=== PATIENT | female | born 1945 | race Caucasian/White ===

== ENCOUNTER 2021-05-27 23:06 | Inpatient (IN) | payer MEDICARE, MEDICAID ==
[~2021-05-27] VITALS: Ht 162.6 cm; Wt 50.8 kg
[2021-05-27 23:54] LABS: BASOPHILS % 0.3 % (0.0-2.0); EOSINOPHILS % 1.6 % (0.0-5.0); HEMATOCRIT. 40.4 % (36.0-48.0); HEMOGLOBIN. 13.4 g/dL (12.0-16.0); LYMPHOCYTES % 7.9 % (20.0-50.0); MEAN CORPUSCULAR HEMOGLOBIN 30.8 pg (28.0-32.0); MEAN CORPUSCULAR VOLUME 92.4 fL (81.0-99.0); MEAN PLATELET VOLUME 8.5 fl (7.4-10.4); MONOCYTES % 5.5 % (2.0-8.0); NEUTROPHILS % 84.7 % (40.0-76.0); PLATELET 242 x1000/uL (130-400); RED BLOOD CELL COUNT 4.37 mill/uL (4.2-5.4); RED CELL DISTRIBUTION WIDTH 13.3 % (11.6-14.6)
[2021-05-27 23:56] LABS: CHLORIDE 101 mEq/L (98-107)
[2021-05-28] VITALS (22 sets, daily range): BP systolic 96–152; BP diastolic 45–100
[2021-05-28 00:07] LABS: CLARITY URINE CLEAR (CLEAR); COLOR URINE YELLOW (YELLOW); KETONES URINE NEGATIVE (NEGATIVE); LEUKOCYTE ESTERASE URINE 1+ (NEGATIVE); NITRITE URINE POSITIVE (NEGATIVE); OCCULT BLOOD URINE NEGATIVE (NEGATIVE); PROTEIN URINE NEGATIVE (NEGATIVE); SPECIFIC GRAVITY URINE 1.017 (1.005-1.030); UROBILINOGEN URINE 0.2 E.U./dL (0.2-1.0)
[2021-05-28] MEDS ORDERED: PIPERACILLIN/TAZ 3.375G PREMIX 50 ML IV NR (00:30)
[2021-05-28] MEDS ORDERED: SODIUM CHLORIDE 0.9% 1000ML BAG (SEPSIS BOLUS) IV ONE (00:30)
[2021-05-28] MEDS ORDERED: VANCOMYCIN 1G PREMIX 200 ML IV NR (00:30)
[2021-05-28 01:39] LABS: BG BASE EXCESS 2.6 mmol/L (-2.0-2.0); BG CARBOXYHEMOGLOBIN 0.3 % (0.5-1.5); BG DEOXYHEMOGLOBIN 3.3 % (0.0-5.0); BG FRACTION INSPIRED OXYGEN 100; BG HCO3 ACT 27.5 mmol/L (22.0-26.0); BG METHEMOGLOBIN 0.2 % (0.0-1.5); BG OXYGEN SATURATION 96.7 % (92.0-98.5); BG OXYHEMOGLOBIN 96.2 % (94.0-97.0); BG PCO2 43.3 mmHg (35.0-45.0); BG PO2 91.5 mmHg (75.0-100.0); BG SAMPLE SITE RIGHT BRACHIAL; BG TOTAL HEMOGLOBIN 13.5 g/dL (12.0-18.0); BG VENT MODE MASK - NRB
[2021-05-28] MEDS ORDERED: LORAZEPAM 2MG/ML CPJ IV ONE (03:00)
[2021-05-28] MEDS ORDERED: LEVETIRACETAM 500MG PREMIX 100 ML IV ONE (03:00)
[2021-05-28] MEDS ORDERED: SUCCINYLCHOLINE CHLORIDE 200MG/10ML IV ONE ×2 (08:12→08:45)
[2021-05-28] MEDS ORDERED: ETOMIDATE 2MG/ML 10ML VIAL IV ONE ×2 (08:12→08:45)
[2021-05-28] MEDS ORDERED: MIDAZOLAM HCL 100 MG in DEXT 5% WATER 80 ML IV ONE (08:45)
[2021-05-28] MEDS ORDERED: DEXTROSE 50% WATER 50ML SYRINGE IV PRN (09:00)
[2021-05-28] MEDS ORDERED: ACETAMINOPHEN 325MG TABLET PO PRN (09:00)
[2021-05-28] MEDS ORDERED: ONDANSETRON HCL 4MG/2ML INJ IV PRN (09:00)
[2021-05-28] MEDS: BLOOD SUGAR DIAGNOSTIC STRIP TEST SCH ×4 (09:30→19:47)
[2021-05-28] MEDS ORDERED: MIDAZOLAM 100MG/100ML PMX 100 ML IV NR (09:45)
[2021-05-28] MEDS: PANTOPRAZOLE SODIUM 40 MG/VIAL IV SCH (09:50)
[2021-05-28] MEDS: PIPERACILLIN/TAZ 3.375G PREMIX 50 ML IV SCH ×2 (10:00→18:20)
[2021-05-28 10:15] LABS: BG CARBOXYHEMOGLOBIN 0.3 % (0.5-1.5); BG DEOXYHEMOGLOBIN 1.9 % (0.0-5.0); BG FRACTION INSPIRED OXYGEN 80; BG HCO3 ACT 24.4 mmol/L (22.0-26.0); BG METHEMOGLOBIN 0.3 % (0.0-1.5); BG OXYGEN SATURATION 98.1 % (92.0-98.5); BG OXYHEMOGLOBIN 97.5 % (94.0-97.0); BG PCO2 38.6 mmHg (35.0-45.0); BG PH 7.418 (7.350-7.450); BG PO2 110.8 mmHg (75.0-100.0); BG SAMPLE SITE RIGHT BRACHIAL; BG TOTAL HEMOGLOBIN 12.8 g/dL (12.0-18.0); BG VENT MODE VENT - AC
[2021-05-28] MEDS ORDERED: FENTANYL 2500MCG/250ML PMX 250 ML IV STA (11:48)
[2021-05-28] MEDS ORDERED: FENTANYL 2500MCG/250ML PMX 250 ML IV PRN ×2 (12:15→21:00)
[2021-05-28] MEDS ORDERED: IPRATROPIUM/ALBUTEROL 0.5-3(2.5)MG/3ML NEB HHN PRN (13:00)
[2021-05-28] MEDS: INSULIN LISPRO 100 UNITS/ML SUBCUT SCH ×3 (13:20→21:00)
[2021-05-28] MEDS ORDERED: PROPOFOL 10MG/ML 100ML 100 ML IV PRN (14:30)
[2021-05-28] MEDS ORDERED: LEVETIRACETAM 500MG PREMIX 100 ML IV SCH (16:00)
[2021-05-28] MEDS: IPRATROPIUM/ALBUTEROL 0.5-3(2.5)MG/3ML NEB HHN SCH (20:22)
[2021-05-28] MEDS: DEXT 5%/0.45% NACL 1000ML 1,000 ML IV SCH (21:10)
[2021-05-29] VITALS (53 sets, daily range): BP systolic 98–170; BP diastolic 47–86
[2021-05-29] MEDS: IPRATROPIUM/ALBUTEROL 0.5-3(2.5)MG/3ML NEB HHN SCH ×4 (00:27→20:54)
[2021-05-29] MEDS: PIPERACILLIN/TAZOBACTAM 3.375G in DEXT 5% WATER 50ML IV SCH ×3 (05:27→21:59)
[2021-05-29 05:34] LABS: BASOPHILS % 0.3 % (0.0-2.0); EOSINOPHILS % 1.2 % (0.0-5.0); HEMATOCRIT. 33.4 % (36.0-48.0); HEMOGLOBIN. 11.3 g/dL (12.0-16.0); LYMPHOCYTES % 14.2 % (20.0-50.0); MEAN CORPUSCULAR HEMOGLOBIN 30.7 pg (28.0-32.0); MEAN CORPUSCULAR VOLUME 90.8 fL (81.0-99.0); MEAN PLATELET VOLUME 8.8 fl (7.4-10.4); MONOCYTES % 6.7 % (2.0-8.0); NEUTROPHILS % 77.6 % (40.0-76.0); PLATELET 177 x1000/uL (130-400); RED BLOOD CELL COUNT 3.68 mill/uL (4.2-5.4); RED CELL DISTRIBUTION WIDTH 13.3 % (11.6-14.6)
[2021-05-29 05:40] LABS: CHLORIDE 107 mEq/L (98-107)
[2021-05-29] MEDS: DEXT 5%/0.45% NACL 1000ML 1,000 ML IV SCH ×2 (06:03→17:36)
[2021-05-29] MEDS: BLOOD SUGAR DIAGNOSTIC STRIP TEST SCH ×4 (06:03→21:55)
[2021-05-29] MEDS: INSULIN LISPRO 100 UNITS/ML SUBCUT SCH ×4 (06:28→22:01)
[2021-05-29 07:46] LABS: BG BASE EXCESS 1.7 mmol/L (-2.0-2.0); BG CARBOXYHEMOGLOBIN 0.3 % (0.5-1.5); BG DEOXYHEMOGLOBIN 4.9 % (0.0-5.0); BG HCO3 ACT 25.1 mmol/L (22.0-26.0); BG METHEMOGLOBIN 0.2 % (0.0-1.5); BG OXYGEN SATURATION 95.1 % (92.0-98.5); BG OXYHEMOGLOBIN 94.6 % (94.0-97.0); BG PH 7.473 (7.350-7.450); BG SAMPLE SITE RIGHT BRACHIAL; BG TOTAL HEMOGLOBIN 11.3 g/dL (12.0-18.0); BG VENT MODE VENT - AC
[2021-05-29] MEDS ORDERED: LIDOCAINE HCL 1% 10 MG/ML 10ML VIAL ONE (07:53)
[2021-05-29] MEDS ORDERED: HYDR-459 PO (08:23)
[2021-05-29] MEDS ORDERED: ALEN35TA52 MT (08:23)
[2021-05-29] MEDS ORDERED: SINCR21 PO (08:23)
[2021-05-29] MEDS ORDERED: LEVE750T4 PO (08:23)
[2021-05-29] MEDS ORDERED: DOCU250C14 MT (08:23)
[2021-05-29] MEDS ORDERED: MELA5TAB21 PO (08:24)
[2021-05-29] MEDS ORDERED: LORA-249 PO (08:24)
[2021-05-29] MEDS ORDERED: PROP10TA10 PO (08:24)
[2021-05-29] MEDS ORDERED: SIMV-46 PO (08:24)
[2021-05-29] MEDS ORDERED: CLAR10 MT (08:24)
[2021-05-29] MEDS ORDERED: POLY17PO3 PO (08:24)
[2021-05-29] MEDS ORDERED: CALC-1042 PO (08:24)
[2021-05-29] MEDS: PANTOPRAZOLE SODIUM 40 MG/VIAL IV SCH (08:39)
[2021-05-29] MEDS ORDERED: LEVETIRACETAM 500MG PREMIX 100 ML IV SCH (09:00)
[2021-05-29] MEDS ORDERED: POTASSIUM CHLORIDE 20MEQ/PACKET PO NR (10:04)
[2021-05-29] MEDS ORDERED: ENOXAPARIN 40MG/0.4ML SYR SUBCUT SCH (11:00)
[2021-05-29] MEDS: CARBIDOPA/LEVODOPA 25/100MG TABLET PO SCH ×3 (12:00→17:35)
[2021-05-29] MEDS: LORAZEPAM 0.5MG TABLET PO SCH (21:59)
[2021-05-29] MEDS: LEVETIRACETAM 750 MG in SODIUM CHLORIDE 0.9% 100 ML IV SCH (21:59)
[2021-05-30] VITALS (49 sets, daily range): BP systolic 89–142; BP diastolic 28–93
[2021-05-30] MEDS: IPRATROPIUM/ALBUTEROL 0.5-3(2.5)MG/3ML NEB HHN SCH ×4 (00:50→21:15)
[2021-05-30] MEDS: CARBIDOPA/LEVODOPA 25/100MG TABLET PO SCH ×4 (00:51→17:46)
[2021-05-30] MEDS: DEXT 5%/0.45% NACL 1000ML 1,000 ML IV SCH ×2 (04:13→12:45)
[2021-05-30 05:42] LABS: BASOPHILS % 0.1 % (0.0-2.0); EOSINOPHILS % 1.2 % (0.0-5.0); HEMOGLOBIN. 9.1 g/dL (12.0-16.0); LYMPHOCYTES % 8.8 % (20.0-50.0); MEAN CORPUSCULAR VOLUME 92.1 fL (81.0-99.0); MONOCYTES % 5.3 % (2.0-8.0); NEUTROPHILS % 84.6 % (40.0-76.0); PLATELET 141 x1000/uL (130-400); RED BLOOD CELL COUNT 2.93 mill/uL (4.2-5.4); RED CELL DISTRIBUTION WIDTH 13.3 % (11.6-14.6)
[2021-05-30 05:57] LABS: CHLORIDE 104 mEq/L (98-107)
[2021-05-30] MEDS: PIPERACILLIN/TAZOBACTAM 3.375G in DEXT 5% WATER 50ML IV SCH ×3 (06:36→21:29)
[2021-05-30] MEDS: INSULIN LISPRO 100 UNITS/ML SUBCUT SCH ×4 (06:37→21:00)
[2021-05-30] MEDS: BLOOD SUGAR DIAGNOSTIC STRIP TEST SCH ×4 (06:37→21:22)
[2021-05-30] MEDS ORDERED: POTASSIUM CHLORIDE INJ 40 MEQ in DEXT 5% WATER 250 ML IV ONE (08:15)
[2021-05-30] MEDS: PANTOPRAZOLE SODIUM 40 MG/VIAL IV SCH (08:38)
[2021-05-30] MEDS: LEVETIRACETAM 750 MG in SODIUM CHLORIDE 0.9% 100 ML IV SCH ×2 (08:38→22:08)
[2021-05-30] MEDS: LORAZEPAM 0.5MG TABLET PO SCH ×2 (08:38→21:28)
[2021-05-30 08:56] LABS: BG BASE EXCESS -2.6 mmol/L (-2.0-2.0); BG CARBOXYHEMOGLOBIN 0.2 % (0.5-1.5); BG FRACTION INSPIRED OXYGEN 50; BG HCO3 ACT 22.4 mmol/L (22.0-26.0); BG METHEMOGLOBIN 0.3 % (0.0-1.5); BG OXYHEMOGLOBIN 98.5 % (94.0-97.0); BG PH 7.367 (7.350-7.450); BG PO2 154.1 mmHg (75.0-100.0); BG SAMPLE SITE RIGHT BRACHIAL; BG VENT MODE VENT - SIMV
[2021-05-30] MEDS: KCL 20MEQ/100ML X 2 FOR TOTAL KCL 40MEQ/200ML IV SCH ×2 (09:45→12:17)
[2021-05-30 11:45] LABS: PROTHROMBIN TIME 10.5 sec (9.6-11.0)
[2021-05-30 12:04] LABS: BG BASE EXCESS -3.2 mmol/L (-2.0-2.0); BG CARBOXYHEMOGLOBIN 0.3 % (0.5-1.5); BG DEOXYHEMOGLOBIN 1.7 % (0.0-5.0); BG FRACTION INSPIRED OXYGEN 40; BG METHEMOGLOBIN 0.2 % (0.0-1.5); BG OXYGEN SATURATION 98.3 % (92.0-98.5); BG OXYHEMOGLOBIN 97.8 % (94.0-97.0); BG PCO2 40.1 mmHg (35.0-45.0); BG PH 7.357 (7.350-7.450); BG PO2 127.2 mmHg (75.0-100.0); BG SAMPLE SITE LEFT BRACHIAL; BG TOTAL HEMOGLOBIN 9.8 g/dL (12.0-18.0); BG VENT MODE VENT - CPAP
[2021-05-30] MEDS ORDERED: LORAZEPAM 2MG/ML CPJ IV SCH (13:30)
[2021-05-31] VITALS (29 sets, daily range): BP systolic 121–176; BP diastolic 57–125
[2021-05-31] MEDS: CARBIDOPA/LEVODOPA 25/100MG TABLET PO SCH ×4 (00:12→23:42)
[2021-05-31] MEDS: DEXT 5%/0.45% NACL 1000ML 1,000 ML IV SCH ×3 (04:44→12:35)
[2021-05-31 05:59] LABS: HEMATOCRIT. 27.3 % (36.0-48.0); HEMOGLOBIN. 9.3 g/dL (12.0-16.0); MEAN CORPUSCULAR HEMOGLOBIN 31.5 pg (28.0-32.0); MEAN CORPUSCULAR VOLUME 92.9 fL (81.0-99.0); RED BLOOD CELL COUNT 2.94 mill/uL (4.2-5.4); RED CELL DISTRIBUTION WIDTH 13.1 % (11.6-14.6)
[2021-05-31] MEDS: PIPERACILLIN/TAZOBACTAM 3.375G in DEXT 5% WATER 50ML IV SCH ×2 (06:22→13:35)
[2021-05-31] MEDS: BLOOD SUGAR DIAGNOSTIC STRIP TEST SCH ×4 (06:30→21:23)
[2021-05-31 06:31] LABS: CHLORIDE 106 mEq/L (98-107)
[2021-05-31] MEDS: INSULIN LISPRO 100 UNITS/ML SUBCUT SCH ×4 (07:00→21:34)
[2021-05-31] MEDS: LEVETIRACETAM 750 MG in SODIUM CHLORIDE 0.9% 100 ML IV SCH ×2 (08:48→21:24)
[2021-05-31] MEDS: PANTOPRAZOLE SODIUM 40 MG/VIAL IV SCH (08:48)
[2021-05-31] MEDS: LORAZEPAM 0.5MG TABLET PO SCH ×2 (08:48→21:35)
[2021-05-31] MEDS: IPRATROPIUM/ALBUTEROL 0.5-3(2.5)MG/3ML NEB HHN SCH ×4 (09:01→19:55)
[2021-05-31] MEDS ORDERED: RACEPINEPHRINE 2.25% 0.5ML NEB VIAL HHN NR (10:45)
[2021-05-31 11:11] LABS: PLATELET 133 x1000/uL (130-400)
[2021-05-31 11:16] LABS: PLATELET ESTIMATE NORMAL
[2021-05-31] MEDS: CEFTRIAXONE 1,000 MG in DEXTROSE 5% WATER 50 ML IV SCH (21:24)
[2021-06-01] VITALS (11 sets, daily range): BP systolic 114–170; BP diastolic 53–90
[2021-06-01] MEDS: IPRATROPIUM/ALBUTEROL 0.5-3(2.5)MG/3ML NEB HHN SCH ×4 (02:00→21:16)
[2021-06-01] MEDS: DEXT 5%/0.45% NACL 1000ML 1,000 ML IV SCH ×3 (02:29→19:54)
[2021-06-01] MEDS: CARBIDOPA/LEVODOPA 25/100MG TABLET PO SCH ×4 (05:11→23:16)
[2021-06-01 06:24] LABS: BASOPHILS % 0.6 % (0.0-2.0); EOSINOPHILS % 5.4 % (0.0-5.0); HEMATOCRIT. 27.7 % (36.0-48.0); HEMOGLOBIN. 9.3 g/dL (12.0-16.0); LYMPHOCYTES % 20.1 % (20.0-50.0); MEAN CORPUSCULAR HEMOGLOBIN 30.5 pg (28.0-32.0); MEAN CORPUSCULAR VOLUME 90.4 fL (81.0-99.0); MONOCYTES % 10.7 % (2.0-8.0); NEUTROPHILS % 63.2 % (40.0-76.0); RED BLOOD CELL COUNT 3.06 mill/uL (4.2-5.4); RED CELL DISTRIBUTION WIDTH 13.4 % (11.6-14.6)
[2021-06-01 06:40] LABS: CHLORIDE 109 mEq/L (98-107)
[2021-06-01] MEDS: BLOOD SUGAR DIAGNOSTIC STRIP TEST SCH ×4 (07:30→20:06)
[2021-06-01] MEDS: INSULIN LISPRO 100 UNITS/ML SUBCUT SCH ×4 (08:00→20:06)
[2021-06-01] MEDS: QUETIAPINE FUMARATE 25MG TABLET PO SCH (10:03)
[2021-06-01] MEDS: LEVETIRACETAM 750 MG in SODIUM CHLORIDE 0.9% 100 ML IV SCH ×2 (10:03→21:03)
[2021-06-01] MEDS: LORAZEPAM 0.5MG TABLET PO SCH ×2 (10:03→20:19)
[2021-06-01] MEDS: FAMOTIDINE 20MG/2ML VIAL IV SCH (10:04)
[2021-06-01] MEDS: AMLODIPINE 10MG TABLET PO SCH ×2 (10:06→10:07)
[2021-06-01] MEDS: CEFTRIAXONE 1,000 MG in DEXTROSE 5% WATER 50 ML IV SCH (20:01)
[2021-06-02] VITALS (10 sets, daily range): BP systolic 117–149; BP diastolic 56–93
[2021-06-02] MEDS: IPRATROPIUM/ALBUTEROL 0.5-3(2.5)MG/3ML NEB HHN SCH ×4 (01:26→20:22)
[2021-06-02] MEDS: CARBIDOPA/LEVODOPA 25/100MG TABLET PO SCH ×3 (05:43→17:44)
[2021-06-02] MEDS: DEXT 5%/0.45% NACL 1000ML 1,000 ML IV SCH ×2 (06:44→21:23)
[2021-06-02] MEDS: BLOOD SUGAR DIAGNOSTIC STRIP TEST SCH ×3 (07:30→17:44)
[2021-06-02] MEDS: INSULIN LISPRO 100 UNITS/ML SUBCUT SCH ×3 (08:00→17:44)
[2021-06-02] MEDS: LEVETIRACETAM 750 MG in SODIUM CHLORIDE 0.9% 100 ML IV SCH ×2 (10:44→21:23)
[2021-06-02] MEDS: LORAZEPAM 0.5MG TABLET PO SCH ×2 (10:45→21:24)
[2021-06-02] MEDS: FAMOTIDINE 20MG/2ML VIAL IV SCH (10:45)
[2021-06-02] MEDS: AMLODIPINE 10MG TABLET PO SCH (10:48)
[2021-06-02] MEDS: QUETIAPINE FUMARATE 25MG TABLET PO SCH (10:48)
[2021-06-02] MEDS: CEFTRIAXONE 1,000 MG in DEXTROSE 5% WATER 50 ML IV SCH (21:23)
[2021-06-03] VITALS: BP 125/76
[2021-06-03] MEDS: CARBIDOPA/LEVODOPA 25/100MG TABLET PO SCH ×4 (00:22→17:41)
[2021-06-03] MEDS: IPRATROPIUM/ALBUTEROL 0.5-3(2.5)MG/3ML NEB HHN SCH ×4 (01:06→18:00)
[2021-06-03 04:00] VITALS: BP 129/73
[2021-06-03] MEDS: BLOOD SUGAR DIAGNOSTIC STRIP TEST SCH ×5 (06:12→21:28)
[2021-06-03] MEDS: INSULIN LISPRO 100 UNITS/ML SUBCUT SCH ×5 (06:12→21:00)
[2021-06-03] MEDS: DEXT 5%/0.45% NACL 1000ML 1,000 ML IV SCH ×2 (06:31→16:45)
[2021-06-03 08:00] VITALS: BP 120/68
[2021-06-03] MEDS: QUETIAPINE FUMARATE 25MG TABLET PO SCH (09:15)
[2021-06-03] MEDS: AMLODIPINE 10MG TABLET PO SCH (09:16)
[2021-06-03] MEDS: LORAZEPAM 0.5MG TABLET PO SCH ×2 (09:16→21:28)
[2021-06-03] MEDS: FAMOTIDINE 20MG/2ML VIAL IV SCH (09:16)
[2021-06-03] MEDS: LEVETIRACETAM 750 MG in SODIUM CHLORIDE 0.9% 100 ML IV SCH ×2 (09:18→21:28)
[2021-06-03 12:00] VITALS: BP 131/64
[2021-06-03 16:00] VITALS: BP 137/76
[2021-06-03 20:00] VITALS: BP 126/77
[2021-06-03] MEDS: CEFTRIAXONE 1,000 MG in DEXTROSE 5% WATER 50 ML IV SCH (21:28)
[2021-06-04] VITALS: BP 158/79
[2021-06-04 04:00] VITALS: BP 89/69
[2021-06-04] MEDS: DEXT 5%/0.45% NACL 1000ML 1,000 ML IV SCH ×2 (04:10→12:45)
[2021-06-04] MEDS: INSULIN LISPRO 100 UNITS/ML SUBCUT SCH ×4 (06:24→20:15)
[2021-06-04] MEDS: BLOOD SUGAR DIAGNOSTIC STRIP TEST SCH ×4 (06:24→20:14)
[2021-06-04 08:00] VITALS: BP 147/63
[2021-06-04] MEDS: IPRATROPIUM/ALBUTEROL 0.5-3(2.5)MG/3ML NEB HHN SCH ×3 (09:18→20:50)
[2021-06-04] MEDS: AMLODIPINE 10MG TABLET PO SCH (09:19)
[2021-06-04] MEDS: LEVETIRACETAM 500MG TABLET PO SCH ×2 (09:19→20:23)
[2021-06-04] MEDS: QUETIAPINE FUMARATE 25MG TABLET PO SCH (09:20)
[2021-06-04] MEDS: FAMOTIDINE 20MG/2ML VIAL IV SCH (09:20)
[2021-06-04 12:00] VITALS: BP 128/70
[2021-06-04 16:00] VITALS: BP 106/64
[2021-06-04 20:00] VITALS: BP 154/67
[2021-06-04] MEDS: CEFTRIAXONE 1,000 MG in DEXTROSE 5% WATER 50 ML IV SCH (20:23)
== END 2021-06-04 22:26 | DRG 720 ==
LOC: ER 23:06 → MICUNO 05-28 03:49 → EDBEDREQDT 05-28 04:06 → EDBEDREQTM 05-28 04:06 → EDBEDREQ 05-28 04:06 → ENRESERV 05-28 07:30 → CANRESERV 05-28 07:30 → EDBEDREQTM 05-28 08:50 → EDBEDREQ 05-28 08:50 → EDBEDREQSVC 05-28 08:50 → ENRESERV 05-28 15:09 → 5EST 05-31 11:07 → 7EST 06-02 23:41
PROVIDERS: ADMIT Internal Medicine; ATTEND Internal Medicine
PROC: 5A1945Z Respiratory Ventilation, 24-96 Consecutive Hours (ICD-10-PCS; principal; 2021-05-28)
PROC: 0BH17EZ Insertion of Endotracheal Airway into Trachea, Via Natural or Artificial Opening (ICD-10-PCS; 2021-05-28)
PROC: 05HY33Z Insertion of Infusion Device into Upper Vein, Percutaneous Approach (ICD-10-PCS; 2021-05-29)
PROC: B54MZZA Ultrasonography of Right Upper Extremity Veins, Guidance (ICD-10-PCS; 2021-05-29)
PROC: 4A10X4Z Monitoring of Central Nervous Electrical Activity, External Approach (ICD-10-PCS; 2021-05-30)
DX: A41.51 Sepsis due to Escherichia coli [E. coli] (principal); J96.01 Acute respiratory failure with hypoxia; J69.0 Pneumonitis due to inhalation of food and vomit; G93.41 Metabolic encephalopathy; E44.1 Mild protein-calorie malnutrition; J15.5 Pneumonia due to Escherichia coli; N39.0 Urinary tract infection, site not specified; F03.90 Unspecified dementia, unspecified severity, without behavioral disturbance, psychotic disturbance, mood disturbance, and anxiety; E11.9 Type 2 diabetes mellitus without complications; I10 Essential (primary) hypertension; G40.909 Epilepsy, unspecified, not intractable, without status epilepticus; D64.9 Anemia, unspecified; R65.20 Severe sepsis without septic shock; Z20.822 Contact with and (suspected) exposure to COVID-19; Z78.1 Physical restraint status; Z68.1 Body mass index [BMI] 19.9 or less, adult
CPT/HCPCS: 36415; 36600; 70551; 71045; 76937; 80048; 80053; 81003; 82270; 82375; 82805; 82962; 83605; 83880; 84145; 84478; 84484; 85025; 87070; 87077; 87186; 87426; 92610; 93005; 94002; 94003; 94640; 95816; 97162; 97166; 97530; 99291; C1725; C9113; J0330; J0696; J1650; J1815; J1953; J2060; J2250; J2543; J2704; J3010; J3370; J3480; J3490; J7040; J7050; J7060; A4315